=== PATIENT | female | born 1970 | race Caucasian/White ===

== ENCOUNTER 2018-09-08 18:54 | Emergency (ER) | payer MEDICAID ==
[~2018-09-08] VITALS: Ht 152.4 cm; Wt 88.5 kg
[2018-09-08 19:06] VITALS: BP 143/86
[2018-09-08 19:11] VITALS: BP 143/86
--- NOTE | 2018-09-08 19:11 | NUR ---
TO LOBBY A/W BED, TWILA HOFF NOTED
--- NOTE | 2018-09-08 20:45 | NUR ---
PT PRESENTS TO THE ED S/P CAT BITE ON HER 2ND DIGIT TO THE RIGHT HAND. PER PATIENT, SHE WAS FEEDING HER CAT WHEN SHE GOT BIT. MILD SWELLING AND ERRYTHEMA NOTED TO THE SITE. 2 SMALL PUNCTURE SITES NOTED. NO ACTIVE BLEEDING, DISCHARGE NOTED.
== END 2018-09-08 21:27 | disposition home or self-care (01) ==
LOC: MED 18:54
DX: S61.250A Open bite of right index finger without damage to nail, initial encounter (principal); E11.9 Type 2 diabetes mellitus without complications; Z88.2 Allergy status to sulfonamides; Z88.0 Allergy status to penicillin; Z88.6 Allergy status to analgesic agent; Z88.1 Allergy status to other antibiotic agents; W55.01XA Bitten by cat, initial encounter; Y93.89 Activity, other specified; Y92.89 Other specified places as the place of occurrence of the external cause; Y99.8 Other external cause status
CPT/HCPCS: 73130; 90471; 90715; 99283

== ENCOUNTER 2019-03-01 19:43 | Emergency (ER) | payer SELFPAY ==
[~2019-03-01] VITALS: Ht 152.4 cm; Wt 95.3 kg
[2019-03-01 19:52] VITALS: BP 143/79
[2019-03-01 20:28] VITALS: BP 130/86
== END 2019-03-01 20:28 | disposition home or self-care (01) ==
LOC: MED 19:43
DX: S61.250A Open bite of right index finger without damage to nail, initial encounter (principal); S61.253A Open bite of left middle finger without damage to nail, initial encounter; E11.9 Type 2 diabetes mellitus without complications; Z88.0 Allergy status to penicillin; Z79.82 Long term (current) use of aspirin; Z88.1 Allergy status to other antibiotic agents; W55.01XA Bitten by cat, initial encounter; Y93.89 Activity, other specified; Y92.89 Other specified places as the place of occurrence of the external cause; Y99.8 Other external cause status
CPT/HCPCS: 99283